=== PATIENT | female | born 1990 | race Caucasian/White ===

== ENCOUNTER 2017-05-12 22:28 | Emergency (ER) | payer BC ==
[~2017-05-12] VITALS: Ht 160 cm; Wt 56.8 kg
[2017-05-12 22:32] VITALS: BP 122/84; TEMP 97.4
[2017-05-12 23:39] VITALS: PULSE 79
== END 2017-05-12 23:38 | disposition home or self-care (01) ==
LOC: COL.ER 22:28
DX: S61.224A Laceration with foreign body of right ring finger without damage to nail, initial encounter (principal); W26.0XXA Contact with knife, initial encounter; Y92.009 Unspecified place in unspecified non-institutional (private) residence as the place of occurrence of the external cause

== ENCOUNTER 2017-05-21 16:42 | Emergency (ER) | payer BC ==
[2017-05-21 16:48] VITALS: BP 110/70; PULSE 83
== END 2017-05-21 16:52 | disposition home or self-care (01) ==
LOC: COL.ER 16:42
DX: S61.214D Laceration without foreign body of right ring finger without damage to nail, subsequent encounter (principal)

== ENCOUNTER 2018-11-23 04:59 | Emergency (ER) | payer BC ==
[~2018-11-23] VITALS: Ht 160 cm; Wt 56.8 kg
[2018-11-23 05:03] VITALS: TEMP 96.9
[2018-11-23] MEDS ORDERED: NUVARING VAG RING VG (05:06)
[2018-11-23 05:35] LABS: COLLECTION METHOD CLEAN CATCH
[2018-11-23 05:37] LABS: BASO % 0.1 % (0.0-2.0); EOS # 0.1 (0.0-0.7); EOS % 0.5 % (0-4.0); GRAN # 9.5 (1.4-6.5); GRAN % 79.4 % (42.2-75.2); HEMATOCRIT 39.4 % (37.0-47.0); HEMOGLOBIN 13.5 g/dl (12.5-16.0); LYMPH # 1.5 (1.2-3.4); LYMPH % 12.1 % (20.0-51.0); MEAN CELL VOLUME 90 fl (80.0-100.0); MEAN CORPUSCULAR HEMOGLOBIN 31 pg (27.0-31.0); MEAN CORPUSCULAR HGB CONC 34 g/dl (33.0-37.0); MEAN PLATELET VOLUME 9.6 fl (7.4-10.4); MONO # 0.9 (0.1-0.6); MONO % 7.4 % (1.7-9.3); PLATELET COUNT 263 K/mm3 (130-400); REDCELL DISTRIBUTION WIDTH-CV 12.5 % (11.5-14.5)
[2018-11-23 05:44] LABS: MUCOUS Present /lpf; PH 6 (5-8); SQUAMOUS EPITHELIAL 0-2 /hpf; URINE APPEARANCE Hazy; URINE BACTERIA Rare /hpf; URINE BILIRUBIN Negative (NEGATIVE); URINE BLOOD 3+ (NEGATIVE); URINE COLOR Yellow; URINE GLUCOSE Negative (NEGATIVE); URINE KETONE Negative (NEGATIVE); URINE LEUKOCYTE ESTERASE Negative (NEGATIVE); URINE NITRATE Negative (NEGATIVE); URINE PROTEIN(semi-quant) Negative (NEGATIVE); URINE RBC 20-50 /hpf; URINE UROBILINOGEN Negative (NEGATIVE)
[2018-11-23 05:49] LABS: ALBUMIN 4.1 gm/dL (3.5-5.0); BILIRUBIN,TOTAL 0.7 mg/dL (0.0-1.0); C-REACTIVE PROTEIN 1.4 mg/dL (0.0-0.9); CALCIUM 9.5 mg/dL (8.4-10.2); CREATININE, serum 0.77 (0.52-1.25); POTASSIUM 3.8 mmol/L (3.4-5.0); TOTAL PROTEIN 7.6 gm/dL (6.4-8.2)
[2018-11-23 07:40] VITALS: BP 108/75; PULSE 78
== END 2018-11-23 07:49 | disposition home or self-care (01) ==
LOC: COL.ER 04:59
PROVIDERS: Emergency Medicine
DX: K59.00 Constipation, unspecified (principal); K52.9 Noninfective gastroenteritis and colitis, unspecified
CPT/HCPCS: J0500; J2405; Q9967